=== PATIENT | male | born 1985 | race African-American/Black ===

== ENCOUNTER 2018-11-25 17:57 | Emergency (ER) | payer OTHER ==
[~2018-11-25] VITALS: Ht 170.2 cm; Wt 79.5 kg
[2018-11-25 17:58] VITALS: BP 136/80
[2018-11-25] MEDS ORDERED: LACT3000 PO (18:03)
[2018-11-25 19:16] LABS: BASO # 0.1 10^3/uL (0.0-0.2); BASO % 1.3 % (0.0-1.0); EOS # 0.2 10^3/uL (0.0-0.5); EOS % 3.8 % (0.0-3.0); HEMATOCRIT 42.9 % (42.0-52.0); HEMOGLOBIN 15.2 g/dl (13.5-17.5); LYMPH # 2.6 10^3/uL (1.5-5.0); LYMPH % 46.6 % (24.0-44.0); MEAN CORPUSCULAR HEMOGLOBIN 31.7 pg (27.0-33.0); MEAN CORPUSCULAR HGB CONC 35.4 g/dl (32.0-36.5); MEAN CORPUSCULAR VOLUME 89.4 fl (80.0-96.0); MONO # 0.4 10^3/uL (0.0-0.8); MONO % 6.5 % (0.0-5.0); NEUTROPHILS # 2.3 10^3/uL (1.5-8.5); NEUTROPHILS % 41.4 % (36.0-66.0); PLATELET COUNT, AUTOMATED 186 10^3/uL (150-450); WHITE BLOOD COUNT 5.5 10^3/uL (4.0-10.0)
[2018-11-25 19:27] LABS: ALBUMIN 4.1 GM/DL (3.2-5.2); ALT/SGPT 31 U/L (12-78); BILIRUBIN,DIRECT 0.1 MG/DL (0.0-0.2); BILIRUBIN,TOTAL 0.5 MG/DL (0.2-1.0); BLOOD UREA NITROGEN 7 MG/DL (7-18); CALCIUM LEVEL 9.3 MG/DL (8.5-10.1); CARBON DIOXIDE LEVEL 29 MEQ/L (21-32); CHLORIDE LEVEL 105 MEQ/L (98-107); CREATININE FOR GFR 0.94 MG/DL (0.70-1.30); GLOMERULAR FILTRATION RATE > 60.0 (>60); GLUCOSE, FASTING 104 MG/DL (70-100); LIPASE 103 U/L (73-393); POTASSIUM SERUM 3.9 MEQ/L (3.5-5.1); SODIUM LEVEL 140 MEQ/L (136-145); TOTAL PROTEIN 8.1 GM/DL (6.4-8.2)
[2018-11-25] MEDS ORDERED: ISOVUE-370 76% 100ML VIAL (Q9967) As Ordered ONE (20:59)
--- NOTE | 2018-11-25 21:49 | REPVR ---
EXAM: CT Abdomen and Pelvis With Contrast EXAM DATE/TIME: 11/25/2018 9:19 PM CLINICAL HISTORY: 33 years old, male; Abdominal pain; Localized; Left lower quadrant (llq); Additional info: Llq pain, diarrhea TECHNIQUE: Imaging protocol: Computed tomography of the abdomen and pelvis with intravenous contrast. Radiation optimization: All CT scans at this facility use at least one of these dose optimization techniques: automated exposure control; mA and/or kV adjustment per patient size (includes targeted exams where dose is matched to clinical indication); or iterative reconstruction. Contrast material: ISOVUE 370; Contrast volume: 100 ml; Contrast route: IV; COMPARISON: No relevant prior studies available. FINDINGS: Liver: Unremarkable. No mass. Gallbladder and bile ducts: There is a calcified stone within the gallbladder. No gallbladder wall thickening or pericholecystic fluid is identified. Pancreas: Unremarkable. No ductal dilation. Spleen: Unremarkable. No splenomegaly. Adrenals: Normal. No mass. Kidneys and ureters: Unremarkable. No stones. No hydronephrosis. Stomach and bowel: Unremarkable. No obstruction. No mucosal thickening. Appendix: No evidence of appendicitis. Intraperitoneal space: Unremarkable. No free air. No significant fluid collection. Vasculature: Unremarkable. No abdominal aortic aneurysm. Lymph nodes: Unremarkable. No enlarged lymph nodes. Bladder: Unremarkable as visualized. Reproductive: Unremarkable as visualized. Bones/joints: No acute fracture. Soft tissues: Unremarkable. IMPRESSION: 1. No acute abnormality. 2. Cholelithiasis. Electronically signed by: Gabriele Duncan On 11/25/2018 21:49:25 PM
== END 2018-11-25 22:23 | disposition home or self-care (01) ==
LOC: M ED 17:57
DX: K80.20 Calculus of gallbladder without cholecystitis without obstruction (principal)
CPT/HCPCS: 74177; 80048; 80076; 81001; 83690; 85025; 99284; Q9967

== ENCOUNTER 2020-08-08 17:04 | Emergency (ER) | payer BC, OTHER ==
[~2020-08-08] VITALS: Ht 172.7 cm; Wt 79.8 kg
[~2020-08-08 17:04] MED LIST: LACT3000 PO
[2020-08-08] MEDS ORDERED: SUMA25TA3 (17:28)
[2020-08-08] MEDS ORDERED: ESCITALOPRAM (17:28)
[2020-08-08] MEDS ORDERED: FLUO20CA22 (17:28)
[2020-08-08] MEDS ORDERED: PROP80CA (17:28)
[2020-08-08] MEDS ORDERED: NS 1,000 ML IV ONE ×2 (19:35→19:55)
[2020-08-08 20:14] LABS: BASO # 0.1 10^3/uL (0.0-0.2); BASO % 0.7 % (0.0-1.0); EOS # 0.1 10^3/uL (0.0-0.5); EOS % 1.6 % (0.0-3.0); HEMATOCRIT 44.4 % (42.0-52.0); HEMOGLOBIN 15.2 g/dl (13.5-17.5); LYMPH # 2.6 10^3/uL (1.5-5.0); LYMPH % 39.2 % (24.0-44.0); MEAN CORPUSCULAR HEMOGLOBIN 30.2 pg (27.0-33.0); MEAN CORPUSCULAR HGB CONC 34.2 g/dl (32.0-36.5); MEAN CORPUSCULAR VOLUME 88.1 fl (80.0-96.0); MONO # 0.3 10^3/uL (0.0-0.8); MONO % 3.9 % (2.0-8.0); NEUTROPHILS # 3.7 10^3/uL (1.5-8.5); NEUTROPHILS % 54.3 % (36.0-66.0); PLATELET COUNT, AUTOMATED 211 10^3/uL (150-450); RED BLOOD COUNT 5.04 10^6/uL (4.30-6.10); WHITE BLOOD COUNT 6.7 10^3/uL (4.0-10.0)
[2020-08-08 20:35] LABS: ALBUMIN 4.2 GM/DL (3.2-5.2); BILIRUBIN,DIRECT 0.2 MG/DL (0.0-0.2); BILIRUBIN,TOTAL 0.7 MG/DL (0.2-1.0); TOTAL PROTEIN 8.5 GM/DL (6.4-8.2)
--- NOTE | 2020-08-08 22:09 | REPVR ---
PROCEDURE INFORMATION: Exam: XR Complete Acute Abdomen Series Exam date and time: 08/08/20 (8:01pm) Age: 35 years old Clinical indication: Acute abdominal pain TECHNIQUE: Imaging protocol: XR complete acute abdomen series, including 2 or more views of the abdomen and a single view chest COMPARISON: CT ABDOMEN PELVIS of 11/25/18 FINDINGS: Lungs: Normal. No consolidation. Pleural spaces: Normal. No pleural effusionss. No pneumothorax. Heart/Mediastinum: Normal. No cardiomegaly. Gastrointestinal tract: Large amount of fecal matter in the right colon and proximal transverse colon. Intraperitoneal space: Normal. No free air. Bones/joints: Normal. No acute fracture. Soft tissues: Normal. IMPRESSION: No acute findings. Clear lung dias. No bowel obstruction. No free air. Possible constipation. Much fecal matter in the right colon and proximal transverse colon. Clinical correlation is suggested. Electronically signed by: Marybel Herrmann On 08/08/2020 22:09:38 PM
[2020-08-08] MEDS ORDERED: COLA100C5 PO (22:19)
[2020-08-08] MEDS ORDERED: MIRA3350 PO (22:21)
[2020-08-08] MEDS ORDERED: DOCUSATE SODIUM 100MG CAPSULE PO ONE (22:25)
[2020-08-08] MEDS ORDERED: MAGNESIUM CITRATE 300 ML BTL PO ONE (22:25)
[2020-08-08] MEDS ORDERED: GLYCERIN ADULT SUPP PR ONE (22:25)
[2020-08-08 22:36] VITALS: BP 118/80
== END 2020-08-08 22:44 | disposition home or self-care (01) ==
LOC: M ED 17:04
DX: K59.00 Constipation, unspecified (principal); I10 Essential (primary) hypertension; F33.9 Major depressive disorder, recurrent, unspecified; K58.9 Irritable bowel syndrome, unspecified; Z79.899 Other long term (current) drug therapy